=== PATIENT | male | born 1960 ===

== ENCOUNTER 2020-01-04 06:57 | Outpatient (REF) | payer OTHER, SELFPAY ==
[2020-01-04 10:12] LABS: Estmated Average Glucose 126
[2020-01-04 11:22] LABS: Chol HDL Ratio 4.85 mg/dL (1.0-5.00); Cholesterol 165 mg/dL (0-200); Glucose 97 mg/dL (65-115); HDL Cholesterol 34 mg/dL (60-100); LDL Cholesterol Calculated 94 mg/dL (50-129); LDL HDL Ratio 2.76 RATIO (0.00-3.22); Triglycerides 183 mg/dL (0-150)
== END 2020-01-04 06:58 | disposition home or self-care (01) ==
LOC: LAB 06:57
PROVIDERS: Family Provider Internal Medicine; PCP Internal Medicine; Visit Provider Dermatology
DX: Z01.89 Encounter for other specified special examinations (principal)
CPT/HCPCS: 80061; 82947; 83036